=== PATIENT | female | born 2000 | race Caucasian/White ===

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

== ENCOUNTER → 2018-08-06 08:29 | Outpatient (CLI) | payer BC | END | disposition home or self-care (01) | LOC: D.NM 07-31 08:00 | PROVIDERS: ATTEND Pediatrics | DX: K82.8 Other specified diseases of gallbladder (principal) ==